=== PATIENT | male | born 1980 | race Caucasian/White ===

== ENCOUNTER 2017-10-14 22:59 | Emergency (ER) | payer SELFPAY ==
[~2017-10-14] VITALS: Ht 185.4 cm; Wt 76.9 kg
[2017-10-14 23:06] VITALS: BP 146/96
== END 2017-10-15 00:59 | disposition left against medical advice (07) ==
LOC: ED 23:59
DX: F20.0 Paranoid schizophrenia (principal)
CPT/HCPCS: 99281